=== PATIENT | female | born 1990 | race American Indian/Alaskan Native ===

== ENCOUNTER 2019-11-03 18:19 | Emergency (ER) | payer OTHER ==
--- NOTE | 2019-11-03 19:01 | EDM.PDOC ---
ED HPI GENERAL MEDICAL PROBLEM - General Chief Complaint: Abdominal Pain Stated Complaint: ABDOMINAL PAIN Time Seen by Provider: 11/03/19 18:39 Source of Information: Reports: Patient History Limitations: Reports: No Limitations - History of Present Illness INITIAL COMMENTS - FREE TEXT/NARRATIVE: Patient is a 29-year-old female who presents to the ER with complaints of acute onset of right upper quadrant/epigastric pain. She states his symptoms began around 245 this afternoon. She was at work when this occurred. She described the pain is an abrupt, stabbing pain that was quite intense. Since that time, the pain has gradually been improving, however it is still mildly present. Rates the current pain 2 out of 10. She also continues to have excessive belching. She denies vomiting associated with this, however she did feel nauseous. She has had no fever or chills. Verbalized that she had a similar occurrence a number of years back and it was recommended that she have a gallbladder ultrasound done, however this never happened. She last ate around noon today and states that it was spaghetti. Right Upper Abdominal Pain Score (Numeric/FACES): 2 - Related Data Allergies Allergy/AdvReac Type Severity Reaction Status Date / Time No Known Allergies Allergy Verified 11/03/19 18:45 Home Meds: Home Meds . [No Known Home Meds] 09/08/15 [History] Past Medical History - Past Health History Medical/Surgical History: Denies Medical/Surgical History HEENT History: Reports: None Cardiovascular History: Reports: None Respiratory History: Reports: None Gastrointestinal History: Reports: None Genitourinary History: Reports: None MOLDER INFLATED BALL History: Reports: , Spontaneous Other MOLDER INFLATED BALL History: Pt states she is 16 weeks . Pt starting spotting and cramping yesterday and this am at 0600 passing large clots and heavy vaginal bleeding started. C/o much cramping and low abd pain. Musculoskeletal History: Reports: None Neurological History: Reports: None Psychiatric History: Reports: None Endocrine/Metabolic History: Reports: None Dermatologic History: Reports: None - Infectious Disease History Infectious Disease History: Reports: None - Past Surgical History Other Musculoskeletal Surgeries/Procedures:: Pt had a cyst removed from neck in 2nd grade. Social & Family History - Tobacco Use Smoking Status *Q: Never Smoker - Caffeine Use Caffeine Use: Reports: Coffee - Recreational Drug Use Recreational Drug Use: No - Living Situation & Occupation Occupation: Unemployed ED ROS GENERAL - Review of Systems Review Of Systems: Comprehensive ROS is negative, except as noted in HPI. ED EXAM, GI/ABD - Physical Exam Exam: See Below Exam Limited By: No Limitations General Appearance: Alert, WD/WN, No Apparent Distress Respiratory/Chest: No Respiratory Distress, Lungs Clear, Normal Breath Sounds, No Accessory Muscle Use, Chest Non-Tender Cardiovascular: Normal Peripheral Pulses, Regular Rate, Rhythm, No Edema, No Gallop, No JVD, No Murmur, No Rub GI/Abdominal Exam: Normal Bowel Sounds, Soft, No Organomegaly, No Distention, No Abnormal Bruit, No Mass, Pelvis Stable, Tender (Right upper quadrant beneath the rib cage. Negative Sandoval sign.) Extremities: Normal Inspection, Normal Range of Motion, Non-Tender, Normal Capillary Refill, No Pedal Edema Neurological: Alert, Oriented, CN II-XII Intact, Normal Cognition, Normal Gait, Normal Reflexes, No Motor/Sensory Deficits Psychiatric: Normal Affect, Normal Mood Skin Exam: Warm, Dry, Intact, Normal Color, No Rash Course - Vital Signs Last Recorded V/S: Last Vital Signs Temp 98.1 F 11/03/19 19:50 Pulse 83 11/03/19 19:50 Resp 18 11/03/19 19:50 BP 101/77 11/03/19 19:50 Pulse Ox 96 11/03/19 19:50 - Orders/Labs/Meds Labs: Laboratory Tests 11/03/19 11/03/19 Range/Units 19:14 19:14 WBC 6.09 (3.98-10.04) K/mm3 RBC 4.84 (3.98-5.22) M/mm3 Hgb 12.5 D (11.2-15.7) gm/dl Hct 39.8 (34.1-44.9) % MCV 82.2 (79.4-94.8) fl MCH 25.8 (25.6-32.2) pg MCHC 31.4 L (32.2-35.5) g/dl RDW Std Deviation 40.6 (36.4-46.3) fL Plt Count 312 D (182-369) K/mm3 MPV 9.8 (9.4-12.3) fl Neut % (Auto) 70.6 (34.0-71.1) % Lymph % (Auto) 22.3 (19.3-51.7) % [place] % (Auto) 6.2 (4.7-12.5) % Eos % (Auto) 0.5 L (0.7-5.8) Baso % (Auto) 0.2 (0.1-1.2) % Neut # (Auto) 4.30 (1.56-6.13) K/mm3 Lymph # (Auto) 1.36 (1.18-3.74) K/mm3 [place] # (Auto) 0.38 H (0.24-0.36) K/mm3 Eos # (Auto) 0.03 L (0.04-0.36) K/mm3 Baso # (Auto) 0.01 (0.01-0.08) K/mm3 Sodium 142 (136-145) mEq/L Potassium 4.0 (3.5-5.1) mEq/L Chloride 105 (98-107) mEq/L Carbon Dioxide 26 (21-32) mEq/L Anion Gap 15.0 (5-15) BUN 17 (7-18) mg/dL Creatinine 0.8 (0.55-1.02) mg/dL Est Cr Clr Drug Dosing 84.29 mL/min Estimated GFR (MDRD) > 60 (>60) mL/min BUN/Creatinine Ratio 21.3 H (14-18) Glucose 111 H (74-106) mg/dL Calcium 9.1 D (8.5-10.1) mg/dL Total Bilirubin 0.4 (0.2-1.0) mg/dL AST 302 H (15-37) U/L ALT 215 H (14-59) U/L Alkaline Phosphatase 103 (46-116) U/L C-Reactive Protein 0.5 (<1.0) mg/dL Total Protein 7.6 (6.4-8.2) g/dl Albumin 3.6 (3.4-5.0) g/dl Globulin 4.0 gm/dL Albumin/Globulin Ratio 0.9 L (1-2) Lipase 108 (73-393) U/L - Re-Assessments/Exams Free Text/Narrative Re-Assessment/Exam: 11/03/19 19:04 On exam, patient does have marked right upper quadrant tenderness beneath the rib cage. She states the symptoms have improved significantly since her initial onset. She is slightly nauseous and has frequent belching. She denies the need for pain medications at this time. Have ordered CBC, CMP, CRP, lipase. We will complete an ultrasound of her gallbladder. 11/03/19 20:29 Hematology was significant for AST elevated at 302 and ALT elevated at 215. Alk phos was normal at 103. CRP normal at 0.5. Lipase normal at 108. Ultrasound of the gallbladder shows a nonvisualized gallbladder most likely representing contracted gallbladder around gallstones. Common bile duct was not visualized but there is no direct evidence of biliary duct dilation seen. Incompletely seen pancreas and small nonshadowing renal calculus within the right lower kidney is noted. Patient's pain has essentially resolved. Discussed these findings with her. I would like her to follow-up in the clinic to have her liver enzymes rechecked next week, as well as discussed the possibility of having a HIDA scan completed. She is in agreement with this plan and has been provided with a list of providers to call and schedule an appointment. Discharge instructions as documented. Departure - Departure Time of Disposition: 20:30 Disposition: Home, Self-Care 01 Condition: Good Clinical Impression: Abdominal pain Qualifiers: Abdominal location: right upper quadrant Qualified Code(s): R10.11 - Right upper quadrant pain - Discharge Information *PRESCRIPTION DRUG MONITORING PROGRAM REVIEWED*: No *COPY OF PRESCRIPTION DRUG MONITORING REPORT IN PATIENT RADHA: No Instructions: Abdominal Pain, Adult, [id number] Referrals: PCP,None [Primary Care Provider] - Forms: ED Department Discharge Additional Instructions: You were seen in the emergency department today for an abrupt onset of right upper quadrant abdominal pain earlier this afternoon. Your work-up included blood work and an ultrasound of your abdomen. Your blood work did show elevated liver enzymes, but was otherwise normal. The ultrasound of your abdomen was not able to well visualize your gallbladder, indicating that it was likely contracted around gallstones. As we discussed, I would like you to follow-up in the clinic next week to have your liver enzymes rechecked and discuss the possibility of a HIDA scan be completed on an outpatient basis. If you should experience a recurrence of your pain, or any other concerning symptoms, please not hesitate to return to the emergency department. Sepsis Event Note - Evaluation Sepsis Screening Result: No Definite Risk - Focused Exam Vital Signs: Vital Signs Temp Pulse Resp BP Pulse Ox 11/03/19 19:50 98.1 F 83 18 101/77 96 11/03/19 18:37 97.6 F 84 18 124/69 96 Date Exam was Performed: 11/03/19 Time Exam was Performed: 20:29
[2019-11-03 19:51] VITALS: BP 101/77; PULSE 83
--- NOTE | 2019-11-03 20:16 | US ---
Right upper quadrant abdominal ultrasound: Multiple real-time images of the upper right abdomen were obtained. Comparison: No prior abdominal imaging is available. Liver shows no focal parenchymal abnormality. Gallbladder is not visualized. This is most likely due to contracted gallbladder around gallstones. Common bile duct not visualized but no indirect evidence of biliary duct dilatation is seen. Small echogenic area is noted within the lower right kidney possibly due to nonshadowing renal calculus. No hydronephrosis is seen of the right kidney. Pancreas poorly seen due to bowel gas. Visualized portion show no discrete abnormality. Main portal vein shows normal hepatopedal flow. Impression: 1. Nonvisualized gallbladder most likely representing contracted gallbladder around gallstones. 2. CBD not visualized but no indirect evidence of biliary duct dilatation is seen. 3. Incompletely seen pancreas and small nonshadowing renal calculus within the lower right kidney is noted. Diagnostic code #3 This report was dictated in MDT
== END 2019-11-03 20:37 | disposition home or self-care (01) ==
LOC: JD.ED 18:19
DX: O99.89 Other specified diseases and conditions complicating pregnancy, childbirth and the puerperium (principal); R10.11 Right upper quadrant pain; Z3A.16 16 weeks gestation of pregnancy
CPT/HCPCS: 36415; 76705; 76705-26; 80053; 83690; 85025; 86140; 99282; 99284-25